=== PATIENT | female | born 1985 ===

== ENCOUNTER 2024-05-03 03:18 | Emergency (ER) | payer BC, MEDICAID ==
[2024-05-03 03:32] VITALS: BP 156/91; PULSE 80
[2024-05-03] MEDS: Azithromycin 250 MG Tab PO SCH (04:52)
[2024-05-03] MEDS: Dexamethasone 10 MG/ML SDV IM ONE (04:52)
[2024-05-03] MEDS: Amoxicillin/Clavulanate K 875-125 MG Tab PO SCH (04:52)
== END 2024-05-03 05:16 | disposition home or self-care (01) ==
LOC: JD.ED 03:18
DX: R51.9 Headache, unspecified (principal); R68.84 Jaw pain; R59.0 Localized enlarged lymph nodes; F17.210 Nicotine dependence, cigarettes, uncomplicated; Z79.899 Other long term (current) drug therapy; Z90.710 Acquired absence of both cervix and uterus; Z88.8 Allergy status to other drugs, medicaments and biological substances
CPT/HCPCS: 96372; 99283; A9270; J1100